=== PATIENT | male | born 1965 | race Caucasian/White ===

== ENCOUNTER 2019-06-20 08:02 | Emergency (ER) | payer BC ==
--- NOTE | 2019-06-20 08:24 | ED Physician Documentation ---
PD HPI CHEST PAIN - Stated complaint Stated Complaint: CHEST PX - Chief complaint Chief Complaint: Cardiac - History obtained from History obtained from: Patient - History of Present Illness Timing - onset: How many hours ago (1-2), Today Timing - onset during: Sleep (awoke with discomfort left chest, which continued but lessened when got up. Still persists some.) Timing - details: Abrupt onset, Still present (lessened but not resolved.), Waxing and waning Quality: Pressure, Tightness. No: Sharp, Tearing Location: Substernal, Left chest, Epigastric Improved by: Other (improved some after getting up. Not changed with breathing. Has not eaten yet. Did not try any meds for it.) Associated symptoms: Diaphoresis, Nausea, Feeling faint / dizzy. No: Shortness of air, General Weakness, Palpitations, Cough Similar symptoms before: Has not had sx before Review of Systems Constitutional: denies: Fever, Chills, Myalgias Nose: denies: Rhinorrhea / runny nose, Congestion Throat: denies: Sore throat Cardiac: reports: Chest pain / pressure. denies: Palpitations, Pedal edema, Calf pain Respiratory: denies: Cough, Wheezing GI: reports: Nausea. denies: Abdominal Pain, Vomiting, Diarrhea Skin: denies: Rash, Lesions PD PAST MEDICAL HISTORY - Past Medical History Cardiovascular: None Respiratory: None Neuro: None Endocrine/Autoimmune: None - Present Medications Home Medications: Ambulatory Orders Medication Instructions Recorded Confirmed Famotidine 20 mg PO DAILY #30 tablet 06/20/19 LORazepam [Ativan] 1 mg PO Q6H PRN #25 tablet 06/20/19 Lidocaine Viscous 2% [Xylocaine 5 ml PO Q4H PRN #100 ml 06/20/19 Viscous 2%] Ondansetron Odt [Zofran] 4 mg TL Q6H PRN #10 tablet 06/20/19 - Allergies Allergies/Adverse Reactions: Allergies Allergy/AdvReac Type Severity Reaction Status Date / Time No Known Drug Allergies Allergy Verified 06/20/19 08:13 - Living Situation Living Situation: reports: With spouse/s.o. Living Arrangement: reports: At home - Social History Does the pt smoke?: No Does the pt drink ETOH?: Yes ETOH Use: Beer (20-24 beers daily, starts soon after getting up in the morning. Gets some shaky if does not drink through the day. ) Does the pt have substance abuse?: No - Family History Family history: reports: CAD PD ED PE NORMAL - Vitals Vital signs reviewed: Yes - General General: Alert and oriented X 3, Well developed/nourished, Other (somewhat shaky and tachycardic. Pleasant and conversant. ) - HEENT HEENT: Moist mucous membranes, Pharynx benign - Neck Neck: Supple, no meningeal sign, No adenopathy - Cardiac Cardiac: No murmur. No: RRR (regular but tachycardic) - Respiratory Respiratory: Clear bilaterally - Abdomen Abdomen: Normal bowel sounds, Soft, Non distended, No organomegaly, Other (some tenderness epigastric area without guarding nor percussion tenderness. ) - Back Back: No CVA TTP - Derm Derm: Normal color, Warm and dry - Extremities Extremities: Normal ROM s pain, No edema, No calf tenderness / cord - Neuro Neuro: Alert and oriented X 3, No motor deficit, No sensory deficit, Normal speech Results - Vitals Vitals: Vital Signs - 24 hr 06/20/19 06/20/19 06/20/19 08:09 09:04 10:32 Temperature 36.1 C L Heart Rate 114 H 98 107 H Respiratory 16 13 26 H Rate Blood Pressure 174/101 H 158/92 H 141/95 H O2 Saturation 99 92 94 Oxygen O2 Source Room air - EKG (time done) 08:18 Rate: Rate (enter#) (98) Rhythm: NSR [place]: Normal Intervals: Normal LA QRS: Normal Ischemia: Normal ST segments. No: ST elevation c/w ischemia, ST depression - Labs Labs: Laboratory Tests 06/20/19 06/20/19 06/20/19 08:36 08:36 08:36 WBC 6.7 RBC 4.50 L Hgb 14.6 Hct 44.0 MCV 97.8 H MCH 32.4 H MCHC 33.2 RDW 13.0 Plt Count 154 MPV 9.1 Neut # (Auto) 3.8 Lymph # (Auto) 2.0 Hartley # (Auto) 0.7 Eos # (Auto) 0.2 Baso # (Auto) 0.0 Absolute Nucleated RBC 0.00 Nucleated RBC % 0.0 Sodium 138 Potassium 3.8 Chloride 99 L Carbon Dioxide 24 Anion Gap 15.0 H BUN 8 Creatinine 0.8 Estimated GFR (MDRD) 102 Glucose 125 H Calcium 8.8 Magnesium Total Bilirubin 0.7 AST 88 H ALT 71 H Alkaline Phosphatase 46 Troponin I High Sens 4.3 B-Natriuretic Peptide Total Protein 7.9 Albumin 4.0 Globulin 3.9 Albumin/Globulin Ratio 1.0 Lipase 36 06/20/19 06/20/19 08:36 08:36 WBC RBC Hgb Hct MCV MCH MCHC RDW Plt Count MPV Neut # (Auto) Lymph # (Auto) Hartley # (Auto) Eos # (Auto) Baso # (Auto) Absolute Nucleated RBC Nucleated RBC % Sodium Potassium Chloride Carbon Dioxide Anion Gap BUN Creatinine Estimated GFR (MDRD) Glucose Calcium Magnesium 1.8 Total Bilirubin AST ALT Alkaline Phosphatase Troponin I High Sens B-Natriuretic Peptide 8 Total Protein Albumin Globulin Albumin/Globulin Ratio Lipase - Rads (name of study) chest xray Radiology: Prelim report reviewed (no acute process), See rad report PD MEDICAL DECISION MAKING - ED course Complexity details: re-evaluated patient (did have improvement with GI cocktail. ), considered differential (will eval for heart or lung related. With history of alcohol use, will also consider pancreatitis and gastritis. ), d/w patient Departure - Departure Disposition: 01 Home, Self Care Clinical Impression: Esophagitis Chest pain Qualifiers: Chest pain type: precordial pain Qualified Code(s): R07.2 - Precordial pain Condition: Stable Record reviewed to determine appropriate education?: Yes Instructions: ED Chest Pain Atypical Unkn Cause Prescriptions: Famotidine 20 mg PO DAILY #30 tablet Lidocaine Viscous 2% [Xylocaine Viscous 2%] 5 ml PO Q4H PRN #100 ml PRN Reason: Pain LORazepam [Ativan] 1 mg PO Q6H PRN #25 tablet PRN Reason: Alcohol Withdrawal Ondansetron Odt [Zofran] 4 mg TL Q6H PRN #10 tablet PRN Reason: Nausea / Vomiting Comments: No signs of heart attack or heart problems or lung problems. The chest discomfort likely was some irritation of the esophagus or stomach. For that you can use famotidine acid reducing medicine daily for a week or 2. Add antacid such as Maalox or Mylanta and you can use lidocaine and thereto if needed for discomfort. Decrease the amount of alcohol use. Preferably stop alcohol use. If you do that and are having problems with withdrawal symptoms, you can use the Ativan for withdrawal and Zofran for nausea in a tapering fashion initially 3-4 times a day and then decreasing the amount over several days to week. That will soften and eliminate the withdrawal symptoms. Discharge Date/Time: 06/20/19 10:53
--- NOTE | 2019-06-20 08:36 | XRAY Report ---
Reason: Chest pain Procedure Date: 06/20/2019 Accession Number: [id number] / [id number] Procedure: XR - Chest 1 View X-Ray CPT Code: 38746 Final Report FULL RESULT: EXAM: CHEST RADIOGRAPHY EXAM DATE: 06/20/2019 08:31 AM. CLINICAL HISTORY: Chest pain. COMPARISON: None. TECHNIQUE: 1 view. FINDINGS: Lungs/Pleura: No focal opacities evident. No pleural effusion. No pneumothorax. Mediastinum: Within exam limitations, the cardiomediastinal contour is normal. Other: None. IMPRESSION: No focal consolidation. RADIA
[2019-06-20] MEDS ORDERED: MAG HYDROX/AL HYDROX/SIMETH 30 ML UDC PO STA (08:39)
[2019-06-20] MEDS ORDERED: LORazepam 2 MG/ML VIAL IVP STA (08:39)
[2019-06-20] MEDS ORDERED: SODIUM CHLORIDE 0.9% 1,000 ML IV ONE (08:39)
[2019-06-20] MEDS ORDERED: LIDOCAINE VISCOUS 2% 15 ML UDC MM STA (08:39)
[2019-06-20] MEDS ORDERED: FAMOTIDINE 20 MG TABLET PO STA (08:39)
[2019-06-20 08:40] LABS: BASOPHILS % (AUTO) 0.6 %; EOSINOPHILS # (AUTO) 0.2 10^3/uL (0.0-0.7); EOSINOPHILS % (AUTO) 2.7 %; HGB - HEMOGLOBIN 14.6 g/dL (14.0-18.0); MEAN CORPUSCULAR HEMOGLOBIN 32.4 pg (27.0-31.0); MEAN CORPUSCULAR HGB CONC 33.2 g/dL (32.0-36.0); MEAN CORPUSCULAR VOLUME 97.8 fL (80.0-94.0); MEAN PLATELET VOLUME 9.1 fL (7.4-11.4); MONOCYTES # (AUTO) 0.7 10^3/uL (0.0-1.0); MONOCYTES % (AUTO) 10.3 %; NEUTROPHILS # (AUTO) 3.8 10^3/uL (1.5-6.6); NEUTROPHILS % (AUTO) 56.1 %; PLT - PLATELET COUNT 154 10^3/uL (130-450); WHITE BLOOD COUNT 6.7 x10^3/uL (4.8-10.8)
[2019-06-20 08:52] LABS: BILIRUBIN,TOTAL 0.7 mg/dL (0.2-1.0); CALCIUM 8.8 mg/dL (8.5-10.3); CREATININE 0.8 mg/dL (0.6-1.2); TOTAL PROTEIN 7.9 g/dL (6.7-8.2)
[2019-06-20 10:32] VITALS: BP 141/95
== END 2019-06-20 10:53 | disposition home or self-care (01) ==
LOC: ED 08:02
DX: K20.9 Esophagitis, unspecified (principal); R07.2 Precordial pain; R00.0 Tachycardia, unspecified; F10.10 Alcohol abuse, uncomplicated; Z82.49 Family history of ischemic heart disease and other diseases of the circulatory system
CPT/HCPCS: 36415; 71045; 80053; 83690; 83735; 83880; 84484; 85025; 93005; 96361; 96374; 99284; A9270; J2060

== ENCOUNTER 2019-08-31 17:11 | Emergency (ER) | payer BC ==
[2019-08-31 17:16] VITALS: BP 150/90
[2019-08-31] MEDS ORDERED: OXYMETAZOLINE HCL 100 SPRAYS BOTTLE NAS STA (17:33)
--- NOTE | 2019-08-31 17:56 | ED Physician Documentation ---
PD HPI HEENT - Stated complaint Stated Complaint: NOSE BLEED - Chief complaint Chief Complaint: Heent - History obtained from History obtained from: Patient (Started having profuse nosebleed about 2 hours ago. He has no history of this. Not anticoagulated.) Review of Systems Constitutional: reports: Reviewed and negative Ears: denies: Loss of hearing, Ear pain, Drainage/discharge Nose: denies: Rhinorrhea / runny nose, Congestion PD PAST MEDICAL HISTORY - Past Medical History Cardiovascular: None Respiratory: None Neuro: None Endocrine/Autoimmune: None GI: GERD : None HEENT: None Psych: Depression, Anxiety Musculoskeletal: None Derm: None - Past Surgical History Past Surgical History: No - Present Medications Home Medications: Ambulatory Orders Medication Instructions Recorded Confirmed Famotidine 20 mg PO DAILY #30 tablet 06/20/19 LORazepam [Ativan] 1 mg PO Q6H PRN #25 tablet 06/20/19 Lidocaine Viscous 2% [Xylocaine 5 ml PO Q4H PRN #100 ml 06/20/19 Viscous 2%] Ondansetron Odt [Zofran] 4 mg TL Q6H PRN #10 tablet 06/20/19 - Allergies Allergies/Adverse Reactions: Allergies Allergy/AdvReac Type Severity Reaction Status Date / Time No Known Drug Allergies Allergy Verified 08/31/19 17:13 - Social History Does the pt smoke?: No Smoking Status: Never smoker Does the pt drink ETOH?: Yes Does the pt have substance abuse?: No - Immunizations Immunizations are current?: Yes - POLST Patient has POLST: No PD ED PE NORMAL - Vitals Vital signs reviewed: Yes - General General: Alert and oriented X 3, No acute distress - HEENT HEENT: Other (Active bleeding from both nares, hard to identify the site due to clot and active bleeding on initial evaluation.) - Neck Neck: Supple, no meningeal sign, No bony TTP - Neuro Neuro: Alert and oriented X 3, Normal speech Results - Vitals Vitals: Vital Signs - 24 hr 08/31/19 17:14 Temperature 36.5 C Heart Rate 84 Respiratory 16 Rate Blood Pressure 150/90 H O2 Saturation 95 Oxygen O2 Source Room air PD MEDICAL DECISION MAKING - ED course ED course: After the administration of some Afrin he was able to blow some clots out. Still hard to see the site but it became clear that he had a chronically perforated septum. Some more Afrin was put in and a clamp was placed. Subsequently I was able to get enough of the clot out to see the bleeding site which was on the left side at the posterior portion of an old septal perforation and this was cauterized and he was observed without any further bleeding. Departure - Departure Disposition: 01 Home, Self Care Clinical Impression: Nasal septal perforation, Epistaxis Condition: Good Record reviewed to determine appropriate education?: Yes Instructions: ED Nosebleed Comments: Follow-up with your doctor as needed, return for new or worsening symptoms.
== END 2019-08-31 18:44 | disposition home or self-care (01) ==
LOC: ED 17:11
DX: J34.89 Other specified disorders of nose and nasal sinuses (principal); R04.0 Epistaxis
CPT/HCPCS: 30901; 99282; 99283

== ENCOUNTER 2019-08-31 19:58 | Emergency (ER) | payer BC ==
[2019-08-31 20:02] VITALS: BP 150/88
[2019-08-31] MEDS ORDERED: AMOXICILLIN 250 MG CAPSULE PO STA (20:16)
--- NOTE | 2019-08-31 20:19 | ED Physician Documentation ---
PD HPI HEENT - Stated complaint Stated Complaint: NOSE BLEED - Chief complaint Chief Complaint: Heent - History obtained from History obtained from: Patient (I saw him earlier in the day for a nosebleed. He has a chronic septal appearing Perforation and cautery was done. He was observed, and there was no further bleeding while in the department. Subsequently he got home and started bleeding again.) Review of Systems Constitutional: reports: Reviewed and negative Nose: denies: Rhinorrhea / runny nose Throat: denies: Sore throat Cardiac: denies: Chest pain / pressure, Palpitations PD PAST MEDICAL HISTORY - Past Medical History Cardiovascular: None Respiratory: None Neuro: None Endocrine/Autoimmune: None GI: GERD : None HEENT: None Psych: Depression, Anxiety Musculoskeletal: None Derm: None - Past Surgical History Past Surgical History: No - Present Medications Home Medications: Ambulatory Orders Medication Instructions Recorded Confirmed Famotidine 20 mg PO DAILY #30 tablet 06/20/19 LORazepam [Ativan] 1 mg PO Q6H PRN #25 tablet 06/20/19 Lidocaine Viscous 2% [Xylocaine 5 ml PO Q4H PRN #100 ml 06/20/19 Viscous 2%] Ondansetron Odt [Zofran] 4 mg TL Q6H PRN #10 tablet 06/20/19 Amoxicillin 500 mg PO TID #10 capsule 08/31/19 - Allergies Allergies/Adverse Reactions: Allergies Allergy/AdvReac Type Severity Reaction Status Date / Time No Known Drug Allergies Allergy Verified 08/31/19 20:00 - Social History Does the pt smoke?: No Smoking Status: Never smoker Does the pt drink ETOH?: Yes Does the pt have substance abuse?: No - Immunizations Immunizations are current?: Yes - POLST Patient has POLST: No PD ED PE NORMAL - Vitals Vital signs reviewed: Yes - General General: Alert and oriented X 3, No acute distress - HEENT HEENT: Other (After clearance of clot there was active bleeding from the left nares.) - Neck Neck: Supple, no meningeal sign, No bony TTP - Neuro Neuro: Alert and oriented X 3, Normal speech Results - Vitals Vitals: Vital Signs - 24 hr 08/31/19 20:00 Temperature 36.5 C Heart Rate 92 Respiratory 16 Rate Blood Pressure 150/88 H O2 Saturation 96 Oxygen O2 Source Room air Procedures - Epistaxis Site: Left, Both, Anterior Preparation: Clots removed Treatment: Anterior rhinorocket (4.5 cm bilateral anterior Rhino Rocket's were placed and Inflated) Other: Observed - no bleeding, Antibiotics prescribed, Referred to ENT Departure - Departure Disposition: 01 Home, Self Care Clinical Impression: Epistaxis Condition: Good Record reviewed to determine appropriate education?: Yes Instructions: ED Nasal Packing Anterior Removable Prescriptions: Amoxicillin 500 mg PO TID #10 capsule Comments: The packing should come out in about 3 days. Ideally will follow-up with an ear nose and throat physician for this. The closest [place], phone number [phone]. Return here on if unable to make an appointment with them due to the coronavirus issues. Return if worse.
== END 2019-08-31 20:23 | disposition home or self-care (01) ==
LOC: ED 19:58
DX: R04.0 Epistaxis (principal); J34.89 Other specified disorders of nose and nasal sinuses

== ENCOUNTER 2019-08-31 21:28 | Emergency (ER) | payer BC ==
[2019-08-31] MEDS ORDERED: TRANEXAMIC ACID 1,000 MG/10 ML VIAL NAS STA (21:29)
[2019-08-31 21:39] VITALS: BP 160/102
--- NOTE | 2019-08-31 21:42 | ED Physician Documentation ---
PD HPI HEENT - Stated complaint Stated Complaint: NOSE BLEED - Chief complaint Chief Complaint: Heent - History obtained from History obtained from: Patient (Seen twice tonight for nosebleed, after the second visit his Rhino Rocket's popped out and he started bleeding again.) Review of Systems Constitutional: denies: Fever, Chills Nose: reports: Epistaxis. denies: Rhinorrhea / runny nose, Congestion PD PAST MEDICAL HISTORY - Past Medical History Cardiovascular: None Respiratory: None Neuro: None Endocrine/Autoimmune: None GI: GERD : None HEENT: None Psych: Depression, Anxiety Musculoskeletal: None Derm: None - Past Surgical History Past Surgical History: No - Present Medications Home Medications: Ambulatory Orders Medication Instructions Recorded Confirmed Famotidine 20 mg PO DAILY #30 tablet 06/20/19 LORazepam [Ativan] 1 mg PO Q6H PRN #25 tablet 06/20/19 Lidocaine Viscous 2% [Xylocaine 5 ml PO Q4H PRN #100 ml 06/20/19 Viscous 2%] Ondansetron Odt [Zofran] 4 mg TL Q6H PRN #10 tablet 06/20/19 Amoxicillin 500 mg PO TID #10 capsule 08/31/19 - Allergies Allergies/Adverse Reactions: Allergies Allergy/AdvReac Type Severity Reaction Status Date / Time No Known Drug Allergies Allergy Verified 08/31/19 20:00 - Social History Does the pt smoke?: No Smoking Status: Never smoker Does the pt drink ETOH?: Yes Does the pt have substance abuse?: No - Immunizations Immunizations are current?: Yes - POLST Patient has POLST: No PD ED PE NORMAL - Vitals Vital signs reviewed: Yes - General General: Alert and oriented X 3, No acute distress - HEENT HEENT: Other (Active bleeding from the left nares, no changes in prior exam.) - Neuro Neuro: Alert and oriented X 3, Normal speech Results - Vitals Vitals: Vital Signs - 24 hr 08/31/19 21:35 Temperature 36.8 C Heart Rate 99 Respiratory 18 Rate Blood Pressure 160/102 H O2 Saturation 96 Oxygen O2 Source Room air PD MEDICAL DECISION MAKING - ED course ED course: Aerosolized tranexamic acid was squirted at both sides and bilateral Merocel packings were placed. However he still seem to be sort of oozing with this in place, so they were re moved, and then a Merisel was placed on the right and a long Rhino Rocket, 7.5 cm on the left that was soaked with a mixture of lidocaine with epinephrine and tranexamic acid. This seemed to stanch the bleeding. Departure - Departure Disposition: 01 Home, Self Care Clinical Impression: Epistaxis Condition: Good Record reviewed to determine appropriate education?: Yes Instructions: ED Nosebleed Comments: Follow your prior discharge instructions and make sure to fill the antibiotics given at the prior visit. 3 days to have the packing out, either here or with ENT preferably, the closest is [place], . Forms: Activity restrictions
== END 2019-08-31 22:25 | disposition home or self-care (01) ==
LOC: ED 21:28
DX: R04.0 Epistaxis (principal); J34.89 Other specified disorders of nose and nasal sinuses
CPT/HCPCS: 30901; 99282; 99283; A9270

== ENCOUNTER 2019-09-03 13:22 | Emergency (ER) | payer BC ==
[2019-09-03 13:32] VITALS: BP 141/98
--- NOTE | 2019-09-03 14:07 | ED Physician Documentation ---
History of Present Illness - Stated complaint Stated Complaint: POST NOSE BLEED - Chief complaint Chief Complaint: Heent - History obtained from History obtained from: Patient - History of Present Illness Timing: How many days ago (3) Pain level max: 0 Pain level now: 0 - Additonal information Additional information: Patient was seen here 3 days ago for epistaxis. Bilateral packing was placed. He is here for packing removal. No further bleeding. He is not on anticoagulants. Afebrile. Otherwise asymptomatic. Review of Systems Constitutional: denies: Fever GI: denies: Vomiting Skin: denies: Rash Musculoskeletal: denies: Neck pain, Back pain Neurologic: denies: Headache PD PAST MEDICAL HISTORY - Past Medical History Past Medical History: Yes Cardiovascular: None Respiratory: None Neuro: None Endocrine/Autoimmune: None GI: GERD : None HEENT: None Psych: Depression, Anxiety Musculoskeletal: None Derm: None - Past Surgical History Past Surgical History: No - Present Medications Home Medications: Ambulatory Orders Medication Instructions Recorded Confirmed Famotidine 20 mg PO DAILY #30 tablet 06/20/19 LORazepam [Ativan] 1 mg PO Q6H PRN #25 tablet 06/20/19 Lidocaine Viscous 2% [Xylocaine 5 ml PO Q4H PRN #100 ml 06/20/19 Viscous 2%] Ondansetron Odt [Zofran] 4 mg TL Q6H PRN #10 tablet 06/20/19 Amoxicillin 500 mg PO TID #10 capsule 08/31/19 - Allergies Allergies/Adverse Reactions: Allergies Allergy/AdvReac Type Severity Reaction Status Date / Time No Known Drug Allergies Allergy Verified 09/03/19 13:29 - Social History Does the pt smoke?: No Smoking Status: Never smoker Does the pt drink ETOH?: Yes Does the pt have substance abuse?: No - Immunizations Immunizations are current?: Yes - POLST Patient has POLST: No PD ED PE NORMAL - Vitals Vital signs reviewed: Yes - General General: Alert and oriented X 3, No acute distress - HEENT HEENT: Moist mucous membranes, Other (Bilateral nasal packing in place. Left is a Rhino Rocket, right is Merocel) - Neck Neck: Supple, no meningeal sign - Cardiac Cardiac: RRR - Respiratory Respiratory: No respiratory distress, Clear bilaterally - Derm Derm: Warm and dry - Neuro Neuro: Alert and oriented X 3 Results - Vitals Vitals: Vital Signs - 24 hr 09/03/19 13:29 Temperature 36.5 C Heart Rate 122 H Respiratory 14 Rate Blood Pressure 141/98 H O2 Saturation 96 Oxygen O2 Source Room air PD MEDICAL DECISION MAKING - ED course Complexity details: reviewed old records, considered differential, d/w patient ED course: Packing was removed. Tolerated well. Observed in the emergency department with no rebleed. Patient counseled regarding signs and symptoms for which I believe and urgent re-evaluation would be necessary. Patient with good understanding of and agreement to plan and is comfortable going home at this time This document was made in part using voice recognition software. While efforts are made to proofread this document, sound alike and grammatical errors may occur. Departure - Departure Disposition: 01 Home, Self Care Clinical Impression: Epistaxis Condition: Good Instructions: ED Nosebleed Follow-Up: your,doctor as needed [Other] Comments: The packing was removed today. Return if you worsen. Follow-up with your doctor for further care. If the bleeding recurs, pinch firmly for at least 15 minutes. Return if you worsen
== END 2019-09-03 14:14 | disposition home or self-care (01) ==
LOC: ED 13:22
DX: Z48.00 Encounter for change or removal of nonsurgical wound dressing (principal); Z86.69 Personal history of other diseases of the nervous system and sense organs
CPT/HCPCS: 99281; 99283

== ENCOUNTER 2020-02-28 14:05 | Emergency (ER) | payer BC ==
[2020-02-28 14:19] VITALS: BP 156/86
--- NOTE | 2020-02-28 14:19 | ED Physician Documentation ---
PD HPI FOCAL NEURO - Stated complaint Stated Complaint: RT SIDE NUMBNESS - Chief complaint Chief Complaint: Neuro - History obtained from History obtained from: Patient - History of Present Illness Timing - onset: How many hours ago (1), Today Timing - duration: Hours (1) Timing - details: Abrupt onset (he states he fell asleep in chair and awoke few hours later with feeling of numbness and weakness of right arm. His face and leg are normal. Talking okay. Spouse and he here for concern of stroke. Symptoms still present but slowly improving while here.) Severity of deficit: Moderate Weakness: Arm, Hand, Right. No: Face, Leg Numbness: Arm, Hand. No: Face, Leg Associated symptoms: Neck pain (some feeling of numbness and muscle stiffness right scapular area.). No: Headache, Nausea / vomiting Baseline status: positive: A&OX3, ambulatory, indep Similar symptoms before: Has not had sx before Recently seen: Not recently seen Review of Systems Constitutional: denies: Fever, Chills Nose: denies: Rhinorrhea / runny nose, Congestion Throat: denies: Sore throat Cardiac: denies: Chest pain / pressure Respiratory: denies: Cough Skin: denies: Rash Musculoskeletal: denies: Neck pain PD PAST MEDICAL HISTORY - Past Medical History Cardiovascular: None Respiratory: None Neuro: None Endocrine/Autoimmune: None GI: GERD : None HEENT: None Psych: Depression, Anxiety Musculoskeletal: None Derm: None - Past Surgical History Past Surgical History: No - Present Medications Home Medications: Ambulatory Orders Medication Instructions Recorded Confirmed Famotidine 20 mg PO DAILY #30 tablet 06/20/19 LORazepam [Ativan] 1 mg PO Q6H PRN #25 tablet 06/20/19 Lidocaine Viscous 2% [Xylocaine 5 ml PO Q4H PRN #100 ml 06/20/19 Viscous 2%] Ondansetron Odt [Zofran] 4 mg TL Q6H PRN #10 tablet 06/20/19 Amoxicillin 500 mg PO TID #10 capsule 08/31/19 - Allergies Allergies/Adverse Reactions: Allergies Allergy/AdvReac Type Severity Reaction Status Date / Time No Known Drug Allergies Allergy Verified 02/28/20 14:07 - Social History Does the pt smoke?: No Smoking Status: Never smoker Does the pt drink ETOH?: Yes Does the pt have substance abuse?: No - Immunizations Immunizations are current?: Yes - POLST Patient has POLST: No PD ED PE NORMAL - Vitals Vital signs reviewed: Yes - General General: Alert and oriented X 3, No acute distress, Well developed/nourished, Other (smell of alchol on breath. 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 Insurance Verifier is moderately impaired. He has sensation of light touch and pinprick in dermatomal areas of arm. Good pulses/cap refill. Stight redness hand without edema. No axillary tenderness/swelling. ) Eye Opening: Spontaneous Motor: Obeys Commands Verbal: Oriented GCS Score: 15 - Psych Psych: Normal mood NIHSS - Level of Consciousness Level of consciousness: (0) Alert, Keenly responsive LOC Questions: (0) Answers both Q's correct LOC Commands: (0) Performs both correctly - Gaze Best Gaze: (0) Normal - Visual Visual: (0) No loss - Facial Palsy Facial Palsy: (0) Normal, symmetrical movement - Motor Arms (both separate) Motor Arm (right): (2) Some effort against gravity Motor Arm (left): (0) No drift - Motor Legs (both separate) Motor Leg (right): (0) No drift Motor Leg (left): (0) No drift - Limb Ataxia Limb Ataxia: (0) Absent - Sensory Sensory: (0) Normal - Best Language Best Language: (0) No aphasia - Dysarthria Dysarthria: (0) Normal - Extinction and Inattention (formally neg Extinction and inattention: (0) No abnormality (just focal weakness of right arm) - Total Score/Results Total Score/Result: 2 Results - Vitals Vitals: Vital Signs - 24 hr 02/28/20 14:08 Temperature 36.6 C Heart Rate 100 Respiratory 16 Rate Blood Pressure 156/86 H O2 Saturation 98 Oxygen O2 Source Room air PD MEDICAL DECISION MAKING - ED course Complexity details: re-evaluated patient (he says his arm is feeling better while being here in ER. He is feeling he does not want/need any testing since s ymptoms would not improve if DVT/electrolyte problem, etc and I would agree with him and feel okay canceling tests. ), considered differential (seems likely radial nerve/brachial plexus neuropraxia related to position while sleeping in chair. Does not seem cerebrovascula with arm only. ), d/w patient Departure - Departure Disposition: 01 Home, Self Care Clinical Impression: Right arm numbness, Nerve palsy Condition: Stable Record reviewed to determine appropriate education?: Yes Instructions: ED Palsy Radial Nerve Discharge Date/Time: 02/28/20 15:20
[2020-02-28] MEDS ORDERED: hydrALAZINE INJ 20 MG/ML VIAL IVP STA (14:24)
== END 2020-02-28 15:20 | disposition home or self-care (01) ==
LOC: ED 14:05
DX: G56.31 Lesion of radial nerve, right upper limb (principal)
CPT/HCPCS: 80053; 83690; 83735; 85025; 99284

== ENCOUNTER 2023-06-21 05:39 | Inpatient (IN) | payer BC ==
[2023-06-21] MEDS: SODIUM CHLORIDE 0.9% 1,000 ML IV STA (06:05)
--- NOTE | 2023-06-21 06:17 | ED Physician Documentation ---
History of Present Illness - Stated complaint Stated Complaint: VOMITING/GI - Chief complaint Chief Complaint: Abd Pain - History obtained from History obtained from: Patient - Additonal information Additional information: Patient is a 57-year-old male presenting for evaluation of epigastric abdominal pain that started approximately 5 or 6 days ago. He states that the pain is gotten better but For the last 2 to 3 days he has been having nausea and vomiting. His last alcohol intake was 3 days ago. He states that he has been drinking heavily recently up to 10 beers a day. He says that his nausea and vomiting feels different today than other times when he has had withdrawal symptoms. He denies history of alcohol withdrawal seizures. He has never been to rehab. Yesterday he reported that his vomiting was darker in color, brown. He also reports having black stools since yesterday. He does not take any blood thinners. Denies NSAID use. Has never had a prior colonoscopy or upper endos copy. Denies history of abdominal surgeries. Denies known history of cirrhosis or varices. Review of Systems Constitutional: denies: Fever Cardiac: denies: Chest pain / pressure Respiratory: denies: Dyspnea GI: reports: Abdominal Pain, Nausea, Vomiting, Bloody / black stool : denies: Dysuria PD PAST MEDICAL HISTORY - Past Medical History Past Medical History: Yes Cardiovascular: None Respiratory: None Neuro: None Endocrine/Autoimmune: None GI: GERD : None HEENT: None Psych: Depression, Anxiety, Other Musculoskeletal: None Derm: None Other Past Medical History: Alcoholism - Past Surgical History Past Surgical History: Yes HEENT: Other - Present Medications Home Medications: Ambulatory Orders Medication Instructions Recorded Confirmed No Known Home Medications 06/21/23 06/21/23 - Allergies Allergies/Adverse Reactions: Allergies Allergy/AdvReac Type Severity Reaction Status Date / Time No Known Drug Allergies Allergy Verified 06/21/23 06:00 - Social History Does the pt smoke?: No Smoking Status: Never smoker Does the pt drink ETOH?: Yes ETOH Use: Beer Does the pt have substance abuse?: No - Immunizations Immunizations are current?: Yes - POLST Patient has POLST: No PD ED PE NORMAL - General General: Alert and oriented X 3, No acute distress, Well developed/nourished - HEENT HEENT: Atraumatic, Moist mucous membranes, Pharynx benign - Neck Neck: Supple, no meningeal sign - Cardiac Cardiac: Other (Tachycardic, regular rhythm) - Respiratory Respiratory: No respiratory distress, Clear bilaterally - Abdomen Abdomen: Normal bowel sounds, Soft, Non tender, Non distended - Rectal Rectal: Other (Chaperoned by CHESTER López, black stools) - Derm Derm: Warm and dry - Neuro Neuro: Normal speech, Other (Slightly tremulous) Results - Vitals Vitals: Vital Signs - 24 hr 06/21/23 06/21/23 05:53 06:40 Temperature 36.4 C L Heart Rate 106 H 96 Respiratory 12 15 Rate Blood Pressure 159/107 H 143/87 H O2 Saturation 97 99 Oxygen O2 Source Room air - Labs Labs: Microbiology 06/21/23 06:02 Occult Blood - Final Stool Laboratory Tests 06/21/23 06/21/23 06/21/23 06:02 06:05 06:05 WBC 11.0 H RBC 3.68 L Hgb 12.3 L Hct 36.9 L MCV 100.3 H MCH 33.4 H MCHC 33.3 RDW 14.1 Plt Count 161 MPV 9.7 Neut # (Auto) 7.3 H Lymph # (Auto) 2.2 Robertson # (Auto) 1.3 H Eos # (Auto) 0.1 Baso # (Auto) 0.0 Absolute Nucleated RBC 0.00 Nucleated RBC % 0.0 PT INR Sodium 138 Potassium 3.4 L Chloride 100 L Carbon Dioxide 27 Anion Gap 11.0 BUN 23 H Creatinine 0.9 Estimated GFR (MDRD) 87 L Glucose 154 H Calcium 9.2 Total Bilirubin 1.2 H AST 20 ALT 22 Alkaline Phosphatase 48 Total Protein 7.6 Albumin 4.3 Globulin 3.3 Albumin/Globulin Ratio 1.3 Lipase 17 Urine Color YELLOW Urine Clarity CLEAR Urine pH 7.0 Ur Specific [place] 1.010 Urine Protein NEGATIVE Urine Glucose (UA) NEGATIVE Urine Ketones NEGATIVE Urine Occult Blood NEGATIVE Urine Nitrite NEGATIVE Urine Bilirubin NEGATIVE Urine Urobilinogen 1 (NORMAL) Ur Leukocyte Esterase NEGATIVE Ur Microscopic Review NOT INDICATED Urine Culture Comments NOT INDICATED Ethyl Alcohol 06/21/23 06/21/23 06:05 06:05 WBC RBC Hgb Hct MCV MCH MCHC RDW Plt Count MPV Neut # (Auto) Lymph # (Auto) Robertson # (Auto) Eos # (Auto) Baso # (Auto) Absolute Nucleated RBC Nucleated RBC % PT 11.9 INR 1.1 Sodium Potassium Chloride Carbon Dioxide Anion Gap BUN Creatinine Estimated GFR (MDRD) Glucose Calcium Total Bilirubin AST ALT Alkaline Phosphatase Total Protein Albumin Globulin Albumin/Globulin Ratio Lipase Urine Color Urine Clarity Urine pH Ur Specific [place] Urine Protein Urine Glucose (UA) Urine Ketones Urine Occult Blood Urine Nitrite Urine Bilirubin Urine Urobilinogen Ur Leukocyte Esterase Ur Microscopic Review Urine Culture Comments Ethyl Alcohol < 10.0 PD Medical Decision Making - ED course Complexity details: reviewed results, re-evaluated patient, d/w patient, d/w family ED course: Patient is a 57-year-old male presenting for evaluation of nausea, vomiting and epigastric pain for the last several days. He also has a history of alcohol use and the last drink 3 to 4 days ago. Reports emesis is dark in color like coffee grounds. Black stools. Initially tachycardic. Suspect some of this is related to withdrawal symptoms. CBC, coags, chemistry, EtOH levels were obtained and reviewed. Potassium of 3.4. Hemoglobin of 12.6. Prior hemoglobin was 14 but t his was 4 years ago. Patient is not on blood thinners or NSAIDs. His abdominal exam is benign. He was given IV fluids, Zofran, Ativan and Protonix. Discussed with general surgery and hospitalist service to for further management. 0650 - D/W Dr. Laboy (Gen Surg) - Recommends medicine admission, PPI, alcohol cessation. He is happy to Consult if medicine service would like his input. He states that he would be able to scope the patient if needed. 0711 - D/W Dr. Webster (Hospitalist) - Will see the patient. Departure - Departure Disposition: 66 [facility] DC/Xfer Clinical Impression: Upper GI bleed, Alcohol abuse Condition: Stable Forms: PCP List
[2023-06-21 06:20] LABS: BASOPHILS % (AUTO) 0.4 %; EOSINOPHILS # (AUTO) 0.1 10^3/uL (0.0-0.7); EOSINOPHILS % (AUTO) 0.5 %; HCT - HEMATOCRIT 36.9 % (42.0-52.0); HGB - HEMOGLOBIN 12.3 g/dL (14.0-18.0); LYMPHOCYTES # (AUTO) 2.2 10^3/uL (1.5-3.5); LYMPHOCYTES % (AUTO) 20.1 %; MEAN CORPUSCULAR HEMOGLOBIN 33.4 pg (27.0-31.0); MEAN CORPUSCULAR HGB CONC 33.3 g/dL (32.0-36.0); MEAN CORPUSCULAR VOLUME 100.3 fL (80.0-94.0); MEAN PLATELET VOLUME 9.7 fL (7.4-11.4); MONOCYTES # (AUTO) 1.3 10^3/uL (0.0-1.0); MONOCYTES % (AUTO) 11.9 %; NEUTROPHILS # (AUTO) 7.3 10^3/uL (1.5-6.6); NEUTROPHILS % (AUTO) 66.7 %; PLT - PLATELET COUNT 161 10^3/uL (130-450); RED BLOOD COUNT 3.68 10^6/uL (4.70-6.10); RED CELL DISTRIBUTION WIDTH 14.1 % (12.0-15.0)
[2023-06-21 06:24] LABS: BILIRUBIN,URINE NEGATIVE (NEGATIVE); GLUCOSE, URINE (UA) NEGATIVE (NEGATIVE); KETONES,URINE (UA) NEGATIVE (NEGATIVE); LEUKOCYTE ESTERASE, URINE NEGATIVE (NEGATIVE); NITRITE,URINE NEGATIVE (NEGATIVE); OCCULT BLOOD,URINE NEGATIVE (NEGATIVE); PROTEIN,URINE NEGATIVE (NEGATIVE); UROBILINOGEN,URINE 1 (NORMAL) E.U./dL (NORMAL)
[2023-06-21 06:30] LABS: CLARITY,URINE CLEAR (CLEAR)
[2023-06-21 06:33] LABS: ALBUMIN 4.3 g/dL (3.2-5.5); ALBUMIN/GLOBULIN RATIO 1.3 (1.0-2.2); BILIRUBIN,TOTAL 1.2 mg/dL (0.2-1.0); CALCIUM 9.2 mg/dL (8.5-10.3); CREATININE 0.9 mg/dL (0.6-1.3); POTASSIUM 3.4 mmol/L (3.5-4.5); TOTAL PROTEIN 7.6 g/dL (6.4-8.9)
[2023-06-21] MEDS: ONDANSETRON 4 MG/2 ML VIAL IVP STA (06:33)
[2023-06-21 06:34] LABS: INR 1.1 (0.8-1.2); PT - PROTHROMBIN TIME 11.9 secs (9.9-12.6)
[2023-06-21] MEDS: LORazepam 2 MG/ML VIAL IVP STA (06:35)
[2023-06-21] MEDS: PANTOPRAZOLE 40 MG VIAL IV STA (06:37)
[2023-06-21] MEDS: POTASSIUM CHLOR 10 MEQ/100 ML 10 MEQ/100 ML BAG IV SCH (07:56)
[2023-06-21] MEDS ORDERED: SODIUM CHLORIDE FLUSH 0.9% 10 ML SYRINGE IVP PRN (08:03)
[2023-06-21] MEDS: SODIUM CHLORIDE FLUSH 0.9% 10 ML SYRINGE IVP SCH (08:33)
[2023-06-21] MEDS ORDERED: PANTOPRAZOLE 80 MG in SODIUM CHLORIDE 0.9% 100ML 100 ML IV ONE (08:33)
[2023-06-21] MEDS ORDERED: diazePAM INJ 5 MG/ML SYRINGE IVP PRN ×2 (08:35)
[2023-06-21 09:08] LABS: ALBUMIN 3.4 g/dL (3.2-5.5); ALBUMIN/GLOBULIN RATIO 1.4 (1.0-2.2); BILIRUBIN,TOTAL 0.8 mg/dL (0.2-1.0); CALCIUM 8.1 mg/dL (8.5-10.3); CREATININE 0.8 mg/dL (0.6-1.3); POTASSIUM 4.1 mmol/L (3.5-4.5); TOTAL PROTEIN 5.9 g/dL (6.4-8.9)
[2023-06-21] MEDS: MULTIVITAMIN 10 ML, THIAMINE INJ 100 MG, FOLIC ACID INJ 1 MG in SODIUM CHLORIDE 0.9% 1,... IV SCH (10:36)
[2023-06-21] MEDS: diazePAM 5 MG TABLET PO ONE (10:55)
[2023-06-21] MEDS: NS W/20 MEQ KCL 1,000 ML IV SCH (11:02)
[2023-06-21] MEDS: PANTOPRAZOLE 80 MG in SODIUM CHLORIDE 0.9% 100ML 100 ML IV SCH (11:14)
--- NOTE | 2023-06-21 11:52 | PHARMACY PROGRESS NOTE ---
- Best Possible Medication History Admit Date and Time: 06/21/23 0803 Processed by: Nursing As the person ultimately responsible for medication therapy, providers are able to order a medication from an existing home medication list in [facility] via the "Reconcile Routine" prior to Confirmation of that medication by system support administrator. Such practice is discouraged except when the physician, in their clinical judgment, deems that a medical need exists for a medication without regard to previous use.
[2023-06-21 12:58] LABS: HCT - HEMATOCRIT 28.6 % (42.0-52.0); HGB - HEMOGLOBIN 9.2 g/dL (14.0-18.0)
[2023-06-21] MEDS ORDERED: ACETAMINOPHEN 325 MG TABLET PO PRN (18:07)
[2023-06-21 20:51] LABS: HCT - HEMATOCRIT 27.5 % (42.0-52.0); HGB - HEMOGLOBIN 8.9 g/dL (14.0-18.0)
--- NOTE | 2023-06-21 22:42 | HISTORY & PHYSICAL EXAMINATION ---
Chief Complaint - Chief Complaint Chief Complaint: Abdominal Pain History of Present Illness - Admitted From Admitted From:: Emergency Room - History Obtained From Records Reviewed: Yes History obtained from: Patient and ER physician, Dr. Christianson - History of Present Illness HPI Comment/Other: Andrei Stevenson is a 57-year-old man whoo presented to the emergency room with complaints of abdominal pain, nausea vomiting and black stool. He reports he drinks about 10 beers a day and his last drink was approximately 3 days ago. He reports he has had multiple episodes of vomiting over the last 2 days and has had black stool for approximately 4 days. He denies fever, chills, chest pain, shortness of breath. History - Past Medical History Cardiovascular: reports: None Respiratory: reports: None Neuro: reports: None Endocrine/Autoimmune: reports: None GI: reports: GERD : reports: None HEENT: reports: None Psych: reports: Depression, Anxiety, Other Musculoskeletal: reports: None Derm: reports: None MRSA Hx?: No Other Past Medical History: Alcoholism - Past Surgical History HEENT: reports: Other - Family & Social History Family History: Mother: Diabetes, Type 2 Living arrangement: At home Living Situation: With spouse/s.o. - Substance History Use: Uses substance without health or social issues: Alcohol, Other (10 beers each day) - POLST Patient has POLST: No Meds/Allgy - Home Medications Home Medications: Ambulatory Orders Medication Instructions Recorded Confirmed No Known Home Medications 06/21/23 06/21/23 - Allergies Allergies/Adverse Reactions: Allergies Allergy/AdvReac Type Severity Reaction Status Date / Time No Known Drug Allergies Allergy Verified 06/21/23 06:00 Review of Systems - Gastrointestinal Gastrointestinal: reports: Abdominal pain, Black stools Exam - Vital Signs Vital Signs: Vital Signs x48h Temp Pulse Resp BP BP Pulse Ox 06/21/23 21:00 37.0 C 89 16 107/72 98 06/21/23 15:35 36.7 C 90 16 123/77 95 - Physical Exam General Appearance: positive: Alert, Mild distress, Anxious Eyes Bilateral: positive: PERRL, No lid inflammation, Conjunctivae nml, No scleral icterus Neck: positive: Nml inspection, Thyroid nml, No JVD, Trachea midline Respiratory: positive: Other (Good air exchange in all lung herrera no wheezing no crackles) Cardiovascular: positive: Other (Positive S1-S2 no EXTR heart sounds) Abdomen: positive: Non-tender, Nml bowel sounds, No distention Neurologic/Psychiatric: positive: Other (Nonfocal) Conclusion/Plan - Problem List (1) Gastrointestinal hemorrhage Conclusion/Plan: Salome Stevenson is a 57-year-old man who presented to the emergency room with complaints of abdominal pain, vomiting and black stool. His symptoms are most consistent with a gastrointestinal hemorrhage and the most likely source is an upper gastrointestinal hemorrhage. Plan: Admit patient to the medical floor Treatment initiated with a pantoprazole drip Continue to monitor hemoglobin hematocrit Given the fact that patient may be in withdrawal and he is hemodynamically stable, EGD will be performed when his withdrawal symptoms are under control or if he decompensates. (2) Alcohol Withdrawal Patient demonstrating some mild symptoms of alcohol withdrawal. Plan: Plan is to initiate the [place] protocol - Lab Results Fish Bones: 06/22/23 05:41 06/22/23 05:41
[2023-06-22 06:07] LABS: BASOPHILS % (AUTO) 0.8 %; EOSINOPHILS # (AUTO) 0.1 10^3/uL (0.0-0.7); EOSINOPHILS % (AUTO) 2.8 %; HCT - HEMATOCRIT 28.1 % (42.0-52.0); HGB - HEMOGLOBIN 8.8 g/dL (14.0-18.0); LYMPHOCYTES # (AUTO) 1.6 10^3/uL (1.5-3.5); LYMPHOCYTES % (AUTO) 32.6 %; MEAN CORPUSCULAR HEMOGLOBIN 32.5 pg (27.0-31.0); MEAN CORPUSCULAR HGB CONC 31.3 g/dL (32.0-36.0); MEAN CORPUSCULAR VOLUME 103.7 fL (80.0-94.0); MEAN PLATELET VOLUME 9.8 fL (7.4-11.4); MONOCYTES # (AUTO) 0.6 10^3/uL (0.0-1.0); NEUTROPHILS # (AUTO) 2.6 10^3/uL (1.5-6.6); NEUTROPHILS % (AUTO) 52.6 %; PLT - PLATELET COUNT 113 10^3/uL (130-450); RED BLOOD COUNT 2.71 10^6/uL (4.70-6.10); RED CELL DISTRIBUTION WIDTH 14.3 % (12.0-15.0)
[2023-06-22 07:05] LABS: CALCIUM 8.2 mg/dL (8.5-10.3); CREATININE 0.7 mg/dL (0.6-1.3); MAGNESIUM 1.6 mg/dL (1.7-2.3); PHOSPHORUS 3.2 mg/dL (2.5-5.0); POTASSIUM 3.6 mmol/L (3.5-4.5)
--- NOTE | 2023-06-22 07:49 | CONSULTATION NOTE ---
Surgery Consult - Admit Date Hospital Admission Date: 06/21/23 - Consult Date Consult Date: 06/22/23 Requesting Provider: Darin - Chief Complaint Chief Complaint: Anemia, Coffee ground emesis - Home Meds/Allergies Home Medications: Patient History Medication Instructions Recorded Confirmed No Known Home Medications 06/21/23 06/21/23 Allergies/Adverse Reactions: Allergies Allergy/AdvReac Type Severity Reaction Status Date / Time No Known Drug Allergies Allergy Verified 06/21/23 06:00 - Vital Signs Vital Signs: Last Vital Signs Temp 97.7 F 06/22/23 04:09 Pulse 76 06/22/23 04:09 Resp 16 06/22/23 04:09 BP 118/74 06/22/23 04:09 Pulse Ox 95 06/22/23 04:09 O2 Flow Rate Intake & Output: Intake & Output 06/19/23 06/20/23 06/21/23 06/22/23 23:59 23:59 23:59 23:59 Intake Total 2483.700 81.833 Output Total 0 Balance 2483.700 81.833 - Lab Results Result Diagrams: 06/22/23 05:41 06/22/23 05:41 - Consultation Note Consultation Note: General Surgery Consultation Note Assessment: 1) Anemia due to UGI bleed. Stable without need for blood transfusion 2) Alcoholism Recommendation: 1) EGD today Consent: Andrei has been counseled for the procedure, it's indications, risks, benefits and expected outcome as well as alternative therapies. We specifically discussed risks associated with anesthesia and insertion of the endoscope into the UGI tract which includes bleeding and/or injury to the esophagus which may require surgical intervention. Andrei understands, agrees, and consents to the proposed operative strategy and requests that we proceed with the procedure as outlined in our discussion. <><><><><><><><><><> Reason for Consultation Request for EGD Chief Complaint Black stools HPI Andrei is a 57 year old male who drinks alcohol daily. He developed mid-ep igastric abdominal pain associated with coffee-ground emesis several days ago. He took OTC antacids and this resolved the abdominal discomfort a bit but then developed melena and came to the ED where he was admitted with anemia due to a suspected UGI bleed. He has been treated with IV fluids and PPI medication and his Hct decreased to and has remained stable at around 27-28%. I was asked to offer upper endoscopy today to evaluate his coffee-ground emesis. His only other episodes of melena were after a dental procedure and an episode of epistaxis. Past Medical History Denies HTN, DM, CKD, Asthma, TB, Hepatitis. Past Surgical History Ooral surgery Social History [place] on [place] with spouse,. denies cigarette smoking. Admits to multiple beers daily Current Medications See "Medication" section Allergies See "Allergy" section ROS Pertinent positives Melena, coffee-ground emesis; nausea; mild epigastric discomfort; heartburn All other reviewed systems negative Physical Examination Vital Signs: See "Vital Signs" section BMI: 26 GENERAL APPEARANCE: Normal development, normal body habitus, normal grooming PSYCHIATRIC: AAO; Comfortable; Cooperative EYES: Pupils equal, round and reactive to light, sclera anicteric EARS, NOSE, MOUTH, THROAT: Hearing normal, Oral mucous membranes moist and without lesions; NECK: No crepitus, lymphadenopathy, or thyromegaly LUNGS: Clear to auscultation without wheezing; No use of accessory muscles to breathe CARDIOVASCULAR: Heart-NSR without murmurs; Palpable carotid arteries - no bruits; Pedal pulses palpable; Peripheral edema absent ABD: Soft, non-tender, no palpable masses; Liver not palpable; no lorie- umbilical ecchymosis LYMPHATIC: Neck, Axillae, Groin: no palpable adenopathy EXTREMITIES: No clubbing, cyanosis, infections SKIN: Anicteric; No rashes, lesions, Ulcerations Labs See "Labs" section Antibiotics: N/A VTEP: [facility] None today Kenneth Laboy MD, FACS General Surgery Service [phone]
[2023-06-22] MEDS ORDERED: LIDOCAINE-MPF 2% 5 ML VIAL ONE (08:44)
[2023-06-22] MEDS ORDERED: PROPOFOL 200 MG/20 ML VIAL IVP ONE (08:45)
--- NOTE | 2023-06-22 09:11 | ANESTHESIA ---
Pre-Anesthesia VS, & Labs - Diagnosis UGI bleed - Procedure EGD Vital Signs: Temp Pulse Resp BP Pulse Ox O2 Flow Rate 36.5 C 76 16 118/74 95 06/22/23 04:09 06/22/23 04:09 06/22/23 04:09 06/22/23 04:09 06/22/23 04:09 Height: 5 ft 9.5 in Weight (kg): 81 kg Body Mass Index: 25.9 BMI Classification: Overweight - Lab Results Current Lab Results: Laboratory Tests 06/22/23 07:41: POC Whole Bld Glucose 84 06/22/23 05:49: POC Whole Bld Glucose 99 06/22/23 05:41: Sodium 140, Potassium 3.6, Chloride 108, Carbon Dioxide 24, Anion Gap 8.0, BUN 11, Creatinine 0.7, Estimated GFR (MDRD) 117, Glucose 97, Calcium 8.2 L, Phosphorus 3.2, Magnesium 1.6 L 06/22/23 05:41: WBC 5.0, RBC 2.71 L, Hgb 8.8 L, Hct 28.1 L, MCV 103.7 H, MCH 32.5 H, MCHC 31.3 L, RDW 14.3, Plt Count 113 L, MPV 9.8, Neut # (Auto) 2.6, Lymph # (Auto) 1.6, Bea[place]gard # (Auto) 0.6, Eos # (Auto) 0.1, Baso # (Auto) 0.0, Absolute Nucleated RBC 0.00, Nucleated RBC % 0.0 06/21/23 23:46: POC Whole Bld Glucose 85 06/21/23 20:35: Hgb 8.9 L, Hct 27.5 L 06/21/23 18:59: POC Whole Bld Glucose 87 06/21/23 12:47: Hgb 9.2 L, Hct 28.6 L 06/21/23 12:25: POC Whole Bld Glucose 91 06/21/23 08:53: Sodium 139, Potassium 4.1, Chloride 106, Carbon Dioxide 27, Anion Gap 6.0, BUN 20, Creatinine 0.8, Estimated GFR (MDRD) 100, Glucose 105 H, Calcium 8.1 L, Total Bilirubin 0.8, AST 15, ALT 16, Alkaline Phosphatase 36 L, Total Protein 5.9 L, Albumin 3.4, Globulin 2.5, Albumin/Globulin Ratio 1.4 06/21/23 06:05: PT 11.9, INR 1.1 06/21/23 06:05: Ethyl Alcohol < 10.0 06/21/23 06:05: Sodium 138, Potassium 3.4 L, Chloride 100 L, Carbon Dioxide 27, Anion Gap 11.0, BUN 23 H, Creatinine 0.9, Estimated GFR (MDRD) 87 L, Glucose 154 H, Calcium 9.2, Total Bilirubin 1.2 H, AST 20, ALT 22, Alkaline Phosphatase 48, Total Protein 7.6, Albumin 4.3, Globulin 3.3, Albumin/Globulin Ratio 1.3, Lipase 17 06/21/23 06:05: WBC 11.0 H, RBC 3.68 L, Hgb 12.3 L, Hct 36.9 L, MCV 100.3 H, MCH 33.4 H, MCHC 33.3, RDW 14.1, Plt Count 161, MPV 9.7, Neut # (Auto) 7.3 H, Lymph # (Auto) 2.2, Beauregard # (Auto) 1.3 H, Eos # (Auto) 0.1, Baso # (Auto) 0.0, Absolute Nucleated RBC 0.00, Nucleated RBC % 0.0 Fish Bones: 06/22/23 05:41 06/22/23 05:41 Home Medications and Allergies Home Medications: Ambulatory Orders No Known Home Medications 06/21/23 Active Medications Acetaminophen (Acetaminophen 325 Mg Tablet) 650 mg PO Q4HR PRN PRN Reason: HEADACHE Diazepam (Diazepam Inj 5 Mg/Ml Syringe) 10 mg IVP Q30M PRN; Protocol PRN Reason: CIWA>8 Diazepam (Diazepam Inj 5 Mg/Ml Syringe) 5 mg IVP Q1H PRN; Protocol PRN Reason: CIWA > 8 Pantoprazole Sodium 80 mg/ (Sodium Chloride) 100 mls @ 10 mls/hr IV .Q10H USHA Last Admin: 06/22/23 06:24 Dose: 10 mls/hr Multivitamins 10 ml/ Thiamine HCl 100 mg/ Folic Acid 1 mg/Sodium Chloride 1,011.2 mls @ 100 mls/hr IV DAILY USHA Last Infusion: 06/21/23 20:32 Dose: Infused Potassium Chloride/Sodium Chloride (Normal Saline 0.9% W/20 Meq Kcl) 1,000 mls @ 83.333 mls/hr IV .Q12H [facility] Last Infusion: 06/21/23 22:09 Dose: 83.333 mls/hr Sodium Chloride (Sodium Chloride Flush 0.9% 10 Ml Syringe) 10 ml IVP PRN PRN PRN Reason: NEEDED PER PROVIDER ORDERS Sodium Chloride (Sodium Chloride Flush 0.9% 10 Ml Syringe) 10 ml IVP 0100,0900,1700 [facility] Last Admin: 06/21/23 23:45 Dose: Not Given No Known Home Medications 06/21/23 Allergies/Adverse Reactions: Allergies Allergy/AdvReac Type Severity Reaction Status Date / Time No Known Drug Allergies Allergy Verified 06/21/23 06:00 Anes History & Medical History - Anesthetic History Anesthesia Complications: reports: No previous complications Family history of Anesthesia Complications: Denies - Medical History Cardiovascular: reports: None Pulmonary: reports: None Gastrointestinal: reports: GERD (ugi bleed, hct 28, stable, npo, no vomiting x 24 hours, has had one bm since admission) Urinary: reports: None Neuro: reports: None Musculoskeletal: reports: None Endocrine/Autoimmune: reports: None Skin: reports: None Smoking Status: Former smoker Psychosocial: reports: Alcohol Other Past Medical History: Alcoholism - Surgical History Eyes Ears Nose Throat (EENT): reports: Other Results - EKG Results EKG Comparison: Reviewed EKG Exam General: Alert Dental: WNL Mouth Openin Fingerbreadth Neck Mobility: Normal Mallampati classification: II Thyromental Distance: 4-6 cm Plan Anesthesia Type: MAC (pt is npo,no vomiting x 24 hrs, moving bowels, Dr Laboy concurs that pts stomach is likeley empty and ok for mac), Total IV Consent for Procedure(s) Verified and Reviewed: Yes Code Status: Attempt Resuscitation ASA classification: 2-Mild systemic disease Is this case an emergency?: No
--- NOTE | 2023-06-22 09:56 | OPERATIVE REPORT ---
Operative Report - General Admit Date: 06/21/23 - Procedure Note Anesthesia Technique: Epidural - Other Other Information/Narrative: This procedure note is generated in [employer] because [employer] is not working at the time of this patient care encounter. PROCEDURE DATE: 06/22/2023 SURGEON: Kenneth Laboy MD, FACS PREOPERATIVE DIAGNOSIS: Andrei is a 57 year old man whom I am asked to perform upper endoscopy upon for evaluation for possible UGI source of his anemia and melena. POSTOPERATIVE DIAGNOSIS: Mild gastroduodenitis NAME OF PROCEDURE: Esophagogastroduodenoscopy ANESTHESIA: IV sedation (MAC) DESCRIPTION OF PROCEDURE FOLLOWS: After consent for the procedure was obtained, the patient was brought to the operating room where, in the supine position, IV sedation was administered by the anesthesia team. The patient was placed into the left lateral decubitus position with the head of the bed raised. A bite block was placed. A Pentax upper endoscope was gently inserted into the esophagus and the examination was begun. The esophageal mucosa was normal. The Z line was at 40 cm. There was no evidence of esophagitis, neoplasms, tumors, ulcers, erosions, strictures, varices or Nettles's. There was no old or fresh blood in the esophagus. The stomach was entered and insufflated. Clear bile was encountered. The antrum was normal except for mild friability of the mucosa. The pylorus was intubated and the first portion demonstrated circumferential mucosal friability consistent with duodenitis. The second and third portion of the duodenum were normal. There were no ulcers, erosions, old or fresh blood in the duodenum. The scope was brought back into the stomach and retroflexed view of the gastroesophageal junction was unremarkable. The scope was reflexed into normal position. The stomach was deflated of air. The scope was removed. The patient tolerated the procedure well. ASSESSMENT: GI bleed due to mild gastroduodenitis. No evidence of active bleed. No evidence of esophageal varices. RECOMMENDATION: 1) PPI for 6-8 weeks 2) May start on a clear liquid diet 3) Avoid NSAID's, ASA, and alcohol 4) H&H Q 6 hrs. Transfuse if needed 5) Discharge when H&H stable and patient is tolerating a diet 6) Alcohol avoidance is encouraged Alireza Laboy MD, FACS General Surgery Service
--- NOTE | 2023-06-22 10:07 | ANESTHESIA POST OP EVALUATION ---
Anesthesia Post Eval - Post Anesthesia Eval Vitals: Last Vital Signs Temp 37 C 06/22/23 09:00 Pulse 82 06/22/23 09:00 Resp 16 06/22/23 09:00 BP 126/72 06/22/23 09:00 Pulse Ox 95 06/22/23 09:00 O2 Flow Rate CV Function Including HR & BP: Stable Pain Control: Satisfactory Nausea & Vomiting: Negative Mental Status: Baseline Respiratory Status: Airway Patent Hydration Status: Satisfactory Anesthesia Complications: None
[2023-06-22] MEDS: MAGNESIUM OXIDE 400 MG TABLET PO SCH (12:07)
[2023-06-22 15:14] LABS: BASOPHILS % (AUTO) 0.5 %; EOSINOPHILS # (AUTO) 0.1 10^3/uL (0.0-0.7); EOSINOPHILS % (AUTO) 2.2 %; HCT - HEMATOCRIT 25.8 % (42.0-52.0); HGB - HEMOGLOBIN 8.4 g/dL (14.0-18.0); LYMPHOCYTES # (AUTO) 1.6 10^3/uL (1.5-3.5); LYMPHOCYTES % (AUTO) 26.9 %; MEAN CORPUSCULAR HEMOGLOBIN 33.1 pg (27.0-31.0); MEAN CORPUSCULAR HGB CONC 32.6 g/dL (32.0-36.0); MEAN CORPUSCULAR VOLUME 101.6 fL (80.0-94.0); MEAN PLATELET VOLUME 9.6 fL (7.4-11.4); MONOCYTES # (AUTO) 0.7 10^3/uL (0.0-1.0); MONOCYTES % (AUTO) 11.4 %; NEUTROPHILS # (AUTO) 3.4 10^3/uL (1.5-6.6); NEUTROPHILS % (AUTO) 58.7 %; PLT - PLATELET COUNT 102 10^3/uL (130-450); RED BLOOD COUNT 2.54 10^6/uL (4.70-6.10); WHITE BLOOD COUNT 5.9 x10^3/uL (4.8-10.8)
--- NOTE | 2023-06-22 15:43 | Discharge Plan ---
Discharge Plan Problem Reviewed?: Yes Disposition: 01 Home, Self Care Condition: Stable Prescriptions: Magnesium 250 mg PO DAILY #20 tablet Diet: Regular Activity Restrictions: Activity as Tolerated Shower Restrictions: No Driving Restrictions: No Weight Bearing: Full Weight Health Concerns: History of Present Illness: Andrei Stevenson is a 57-year-old man whoo presented to the emergency room with complaints of abdominal pain, nausea vomiting and black stool. He reports he drinks about 10 beers a day and his last drink was approximately 3 days ago. He reports he has had multiple episodes of vomiting over the last 2 days and has had black stool for approximately 4 days. He denies fever, chills, chest pain, shortness of breath. Hospital Course: Mr. Stevenson was admitted to the medical floor and treatment was initiated with a pantoprazole drip. Serial hemoglobins and hematocrit were obtained and hemoglobin hematocrit decreased from 12.3/36.9-9.2/28.6 and stabilized 8.48.8/25.828.1. On hospital day #2 he underwent a EGD. EGD revealed mild gastroduodenitis. There was no evidence of esophagitis, neoplasm, tumor, ulcer, erosions, strictures, varices or Nettles's esophagus. Patient is now stable for discharge. Plan of Treatment: Plan of treatment: 1. Continue pantoprazole for 8 weeks. 2. Advance diet as tolerated to regular diet. 3. Avoid NSAIDs, aspirin and alcohol. 4. Patient was counseled to avoid alcohol. Care Goals: Goal of care is to avoid ulceration of stomach mucosa or other abnormality that results in gastrointestinal hemorrhage. Another goal would be for the gastric mucosa to heal. Assessment: The etiology of patient's gastrointestinal hemorrhage is not clear but very likely secondary to alcohol consumption. Recommend avoidance of alcohol consumption. Additional Instructions or Follow Up instructions: Please follow-up with primary care provider.If you do not have a primary care provider, recommend obtaining a care provider in the near future. Follow-Up Care: [facility] - Medical No Smoking: If you smoke, Please STOP! Call for help.
--- NOTE | 2023-06-22 15:43 | DISCHARGE SUMMARY ---
"Discharge Summary Admit Date: 06/21/23 Discharge Date: 06/22/23 Discharging Provider: Cuong Sanchez Primary Care Provider: He does not have one Code Status: Attempt Resuscitation Condition at Discharge: Stable Discharge Disposition: 01 Home, Self Care - DIAGNOSES Admission Diagnoses: (1) Gastrointestinal hemorrhage (2) Alcohol Withdrawal Discharge Diagnoses with Status of Each Condition: (1) Gastrointestinal hemorrhage (2) Alcohol Withdrawal - HPI History of Present Illness: Andrei Stevenson is a 57-year-old man whoo presented to the emergency room with complaints of abdominal pain, nausea vomiting and black stool. He reports he drinks about 10 beers a day and his last drink was approximately 3 days ago. He reports he has had multiple episodes of vomiting over the last 2 days and has had black stool for approximately 4 days. He denies fever, chills, chest pain, shortness of breath. - CONSULTS | PROCEDURES Consultations: 06/22/2023 General Surgery (Dr. Kenneth Laboy) Procedures: 06/22/2023 Esophagogastroduodenoscopy - HOSPITAL COURSE Hospital Course: Mr. Stevenson was admitted to the medical floor and treatment was initiated with a pantoprazole drip. Serial hemoglobins and hematocrit were obtained and hemoglobin hematocrit decreased from 12.3/36.9-9.2/28.6 and stabilized [id number]. On hospital day #2 he underwent a EGD. EGD revealed mild gastroduodenitis. There was no evidence of esophagitis, neoplasm, tumor, ulcer, erosions, strictures, varices or Nettles's esophagus. Patient is now stable for discharge. - ALLERGIES Allergies/Adverse Reactions: Allergies Allergy/AdvReac Type Severity Reaction Status Date / Time No Known Drug Allergies Allergy Verified 06/21/23 06:00 - MEDICATIONS Home Medications: Ambulatory Orders Medication Instructions Recorded Confirmed Magnesium 250 mg PO DAILY #20 tablet 06/22/23 Pantoprazole [Protonix] 40 mg PO BID 60 Days #120 tablet 06/22/23 - PHYSICAL EXAM AT DISCHARGE General Appearance: positive: No acute distress, Alert Eyes Bilateral: positive: Normal inspection Neck: positive: Nml inspection, Thyroid nml, No JVD, Trachea midline Respiratory: positive: Chest non-tender Cardiovascular: positive: Regular rate & rhythm, No murmur, No gallop Abdomen: positive: Non-tender, No organomegaly, Nml bowel sounds, No distention Skin: positive: No rash Extremities: positive: Non-tender, No pedal edema Neurologic/Psychiatric: positive: Oriented x3 - LABS Result Diagrams: 06/22/23 14:55 06/22/23 05:41 - FOLLOW UP Follow Up: Follow-up with primary care provider. If you do not have a primary care provider, please make an appointment with a new provider. - TIME SPENT Time Spent in Discharge (Minutes): 28"
[2023-06-22 16:20] VITALS: BP 115/71; O2SAT 94
== END 2023-06-22 17:20 | disposition home or self-care (01) | DRG 378 ==
LOC: ED 05:39 → MS2 08:03
PROVIDERS: ADMIT Internal Medicine; ATTEND Internal Medicine
PROC: 0DJ08ZZ Inspection of Upper Intestinal Tract, Via Natural or Artificial Opening Endoscopic (ICD-10-PCS; principal; 2023-06-22 09:15)
DX: K29.91 Gastroduodenitis, unspecified, with bleeding (principal); F10.239 Alcohol dependence with withdrawal, unspecified; K21.9 Gastro-esophageal reflux disease without esophagitis
CPT/HCPCS: 36415; 80048; 80053; 80320; 81003; 82272; 83690; 83735; 84100; 85014; 85018; 85025; 85610; 93005; 96374; 96375; 99284; 99285; A9270; J2060; J3411; 81001; 87086